=== PATIENT | male | born 1990 | race Caucasian/White ===

== ENCOUNTER 2021-06-13 16:55 | Emergency (ER) | payer OTHER ==
[~2021-06-13] VITALS: Ht 182.9 cm; Wt 122.5 kg
[2021-06-13 17:05] VITALS: BP_SYST 161
--- NOTE | 2021-06-13 17:09 | NUR ---
Bridget Pack RN assumed cares
--- NOTE | 2021-06-13 17:10 | NUR ---
Patient to ER bed 08 to gown for evaluation. Side rails up.
--- NOTE | 2021-06-13 17:11 | NUR ---
MD at bedside examining patient
--- NOTE | 2021-06-13 17:32 | NUR ---
Patient taken to Xray for exam
--- NOTE | 2021-06-13 17:38 | NUR ---
Patient returned from Xray
[2021-06-13 18:04] VITALS: BP_SYST 161
--- NOTE | 2021-06-13 18:04 | NUR ---
Patient given written and verbal discharge instructions and verbalizes understanding. ER MD discussed with patient the results and treatment provided. Patient in stable condition. ID arm band removed. Rx of given. Patient educated on pain management and to follow up with PMD. Pain Scale 2/10 tolerable Opportunity for questions provided and answered. Medication side effect fact sheet provided.
[2021-06-13] MEDS ORDERED: HYDR-3917 PO (18:05)
[2021-06-13] MEDS ORDERED: IBUP-1971 PO (18:05)
== END 2021-06-13 18:04 | disposition home or self-care (01) ==
LOC: SED 16:55
DX: S63.502A Unspecified sprain of left wrist, initial encounter (principal); S53.402A Unspecified sprain of left elbow, initial encounter; W23.0XXA Caught, crushed, jammed, or pinched between moving objects, initial encounter; Y93.89 Activity, other specified; Y92.89 Other specified places as the place of occurrence of the external cause; Y99.0 Civilian activity done for income or pay
CPT/HCPCS: 99284